=== PATIENT | female | born 1945 | race Caucasian/White ===

== ENCOUNTER 2021-03-12 14:55 | Inpatient (IN) | payer MEDICARE, OTHER ==
[~2021-03-12] VITALS: Ht 157.5 cm; Wt 58.5 kg
[2021-03-12 15:13] LABS: BASOPHILS # (AUTO) 0.1 /CMM (0.0-0.2); BASOPHILS % (AUTO) 1.7 % (0.0-2.0); EOSINOPHILS % (AUTO) 3.1 % (0.0-6.0); HEMATOCRIT 39 % (33-45); HEMOGLOBIN 13.1 g/dL (11.5-14.8); LYMPHOCYTES # (AUTO) 1.5 /CMM (0.8-4.8); LYMPHOCYTES % (AUTO) 34.5 % (20.0-44.0); MEAN CORPUSCULAR HGB CONC 33 g/dl (31.0-36.0); MEAN CORPUSCULAR VOLUME 96 fL (82-100); MONOCYTES # (AUTO) 0.5 /CMM (0.1-1.30); MONOCYTES % (AUTO) 10.9 % (2.0-12.0); NEUTROPHILS # (AUTO) 2.2 /CMM (1.8-8.9); NEUTROPHILS % (AUTO) 49.8 % (43.0-81.0); PLATELET COUNT (AUTO) 182 /CMM (150-450); RED BLOOD CELL COUNT(AUTO) 4.08 MIL/uL (4.0-5.2); WHITE BLOOD COUNT (AUTO) 4.5 K/uL (4.3-11.0)
--- NOTE | 2021-03-12 15:19 | NUR ---
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 BS 158. On room air, breathing evenly and unlabored. Connected to the monitor and pulse ox. kept comfortable, will continue to monitor accordingly.
--- NOTE | 2021-03-12 15:21 | NUR ---
ANA [phone].
[2021-03-12 15:25] LABS: BILIRUBIN,URINE Negative (NEGATIVE); COLOR,URINE YELLOW (YELLOW); LEUKOCYTE ESTERASE ,URINE Negative (NEGATIVE); NITRITE, URINE Negative (NEGATIVE); PH,URINE 6.5 (5.0-8.0); PROTEIN,URINE Negative (NEGATIVE); UGLUCOSE Negative (NEGATIVE); UROBILINOGEN,URINE 0.2 EU/dL (0.2)
[2021-03-12 15:27] LABS: CARBON DIOXIDE 27 mmol/L (21-32); CHLORIDE 105 mmol/L (98-107); CREATININE 0.7 mg/dL (0.6-1.3); GLUCOSE 115 mg/dL (74-106); POTASSIUM 4.1 mmol/L (3.5-5.1); SODIUM SERUM 138 mmol/L (136-145); UREA NITROGEN, BLOOD 11 mg/dL (7-18)
[2021-03-12] MEDS ORDERED: IV NS 0.9% 1,000 ML BAG IV ONE (15:30)
[2021-03-12 15:32] LABS: ALANINE AMINOTRANSFERASE 26 U/L (12-78); ALBUMIN 3.4 g/dL (3.4-5.0); ALCOHOL, BLOOD < 3 mg/dL (0-0); ALKALINE PHOSPHATASE 71 U/L (46-116); ASPARTATE AMINOTRANSFERASE 20 U/L (15-37); BILIRUBIN,DIRECT 0.1 mg/dL (0.0-0.2); BILIRUBIN,TOTAL 0.4 mg/dL (0.2-1.0); TOTAL PROTEIN, SERUM 6.4 g/dL (6.4-8.2)
[2021-03-12 15:34] LABS: SERUM AMMONIA 17 umol/L (11-32)
[2021-03-12] MEDS ORDERED: ATOR20TA PO (16:24)
--- NOTE | 2021-03-12 16:33 | NUR ---
CODE STROKE INITIATED
--- NOTE | 2021-03-12 16:37 | NUR ---
COVID SWAB DONE AND SENT TO LAB
[2021-03-12] MEDS ORDERED: CT SWABBABLE VALVE TRANS SET 1 EA INFUS.SET MC ONE (16:38)
[2021-03-12] MEDS ORDERED: IOHEXOL-350 100 ML VIAL IV ONE (16:38)
[2021-03-12] MEDS ORDERED: IV NS 0.9% 250 ML IV ONE (16:38)
--- NOTE | 2021-03-12 17:10 | NUR ---
covid negative per lab
[2021-03-12] MEDS ORDERED: ENALAPRILAT INJ (1.25 MG/ML) 1.25 MG/ML VIAL IV PRN (17:30)
[2021-03-12] MEDS ORDERED: ASPIRIN 325 MG TABLET PO ONE ×2 (17:30→22:30)
[2021-03-12] MEDS ORDERED: ACETAMINOPHEN 325 MG TABLET PO PRN (17:30)
--- NOTE | 2021-03-12 17:30 | NUR ---
NURSING SUP GAVE 322-1.
[2021-03-12] MEDS ORDERED: PARO10TA86 PO (17:31)
[2021-03-12] MEDS ORDERED: ESCI10TA PO (17:31)
--- NOTE | 2021-03-12 18:30 | NUR ---
CAR SUPPLIER ADMITTING NOTES PT TRANSPORTED BY BED TO UNIT FROM ED AT THIS TIME. RECEIVED REPORT FROM ARACELI RN @ ED , PT AOX4. PT ABLE TO MAKE NEEDS KNOWN. NO SOB NOTED, NO C//O OF PAIN AT THIS TIME, NO S/O ANY ACUTE DISTRESS NOTED.RESPIRATIONS EVEN AND UNLABORED. PT IS STABLE ON RA. PT ON EXTERNAL TELE TIN FLIPPER READING SB 58. ACTIVE BOWEL SOUNDS AUSCULTATED THROUGHOUT, SKIN WARM TO TOUCH. CAPILLARY REFILL< 3SECONDS, PULSES PRESENT BILATERALLY, GOOD CIRCULATION NOTED. BUE AND BLE STRENGTH. IV ACCESS NOTED IN RAC G#18, INTACT, PATENT AND FLUSHING WELL. PT'S BELONGINGS ACCOUNTED FOR, AND KEPT AT PT'S BEDSIDE PER PT REQUEST. FAMILY AT BEDSIDE. NIHSS ASSESSMENT PERFORMED AT BEDSIDE WITH SCORE OF 0. ASPIRATION AND SAFETY PRECAUTIONS IN PLACE AND MAINTAINED AT ALL TIMES. BED IN LOWEST LOCKED POSITION, SIDE RAILS UPX2, TABLE AND CALL LIGHT WITHIN REACH. WILL CONTINUE WITH PLAN OF CARE
--- NOTE | 2021-03-12 18:30 | NUR ---
report given to Sheri BLANCO for juan pablo
--- NOTE | 2021-03-12 18:38 | NUR ---
wheeled patient via gurney accompanied by RN and emt in no distress. RN assigned at bedside to assume care.
--- NOTE | 2021-03-12 18:46 | NUR ---
TEXTED DR. HOUSE FOR MRI APPROVAL.
[2021-03-12 19:04] LABS: THYROID STIMULATING HORMONE 1.161 uIU/mL (0.358-3.74)
[2021-03-12 19:13] LABS: MAGNESIUM 2.3 mg/dL (1.8-2.4)
--- NOTE | 2021-03-12 19:30 | NUR ---
TELE/RN OPENING NOTES RECEIVED PATIENT IN BED RESTING. PATIENT IS A/OX 4, NO SIGNS OF SOB OR RESPIRATORY DISTRESS NOTED. PATIENT BREATHING IS EVEN AND UNLABORED. PATIENT IN NO ACUTE DISTRESS NOTED. FAMILY AT BESIDE. PATIENT PASSED NURSING SWALLOW EVALUATION. PATIENT STATES NO PAIN AT THE MOMENT. PATIENT CONNECTED TO TELE MONITOR. SAFETY MEASURES ARE IN PLACE, WILL CONTINUE WITH PATIENT PLAN OF CARE.
[2021-03-12 20:00] VITALS: BP 128/75
[2021-03-12] MEDS ORDERED: SIMVASTATIN 20 MG TABLET PO SCH (22:00)
[2021-03-12] MEDS ORDERED: IV D5/0.45 NACL 1,000 ML IV PRN (22:00)
[2021-03-13] VITALS: BP 108/89
[2021-03-13 04:00] VITALS: BP 109/57
[2021-03-13 06:31] LABS: BASOPHILS # (AUTO) 0.1 /CMM (0.0-0.2); BASOPHILS % (AUTO) 1.1 % (0.0-2.0); EOSINOPHILS % (AUTO) 2.6 % (0.0-6.0); HEMATOCRIT 38 % (33-45); HEMOGLOBIN 12.5 g/dL (11.5-14.8); LYMPHOCYTES # (AUTO) 1.8 /CMM (0.8-4.8); LYMPHOCYTES % (AUTO) 38.6 % (20.0-44.0); MEAN CORPUSCULAR HGB CONC 33 g/dl (31.0-36.0); MEAN CORPUSCULAR VOLUME 96 fL (82-100); MONOCYTES # (AUTO) 0.4 /CMM (0.1-1.30); MONOCYTES % (AUTO) 9.4 % (2.0-12.0); NEUTROPHILS # (AUTO) 2.2 /CMM (1.8-8.9); NEUTROPHILS % (AUTO) 48.3 % (43.0-81.0); PLATELET COUNT (AUTO) 173 /CMM (150-450); WHITE BLOOD COUNT (AUTO) 4.6 K/uL (4.3-11.0)
--- NOTE | 2021-03-13 06:38 | NUR ---
TELE/RN CLOSING NOTES PATIENT IN BED RESTING. PATIENT IS A/OX 3, NO SIGNS OF SOB OR RESPIRATORY DISTRESS NOTED. PATIENT BREATHING IS EVEN AND UNLABORED. PATIENT IN NO ACUTE DISTRESS NOTED. PATIENT STATES NO PAIN AT THE MOMENT. PATIENT CONNECTED TO TELE MONITOR. IV ACCESS INTACT FLUSHING WELL. PATIENT ABLE TO AMBULATE WITH ASSIST TO RESTROOM. SAFETY MEASURES ARE IN PLACE, WILL ENDORSE CARE TO DAY SHIFT.
[2021-03-13 06:56] LABS: CALCIUM, SERUM 8.4 mg/dL (8.5-10.1); CREATININE 0.7 mg/dL (0.6-1.3); POTASSIUM 3.8 mmol/L (3.5-5.1)
--- NOTE | 2021-03-13 07:30 | NUR ---
RN MS NOTES PT IN BED, AWAKE, ALERT AND ORIENTED, DENIES PAIN, NOT IN DISTRESS, CALL LIGHT WITHIN REACH, KEPT WARM AND COMFORTABLE IN BED.
[2021-03-13 08:00] VITALS: BP 122/60
[2021-03-13] MEDS ORDERED: ASPIRIN 81 MG TAB.CHEW PO SCH (09:00)
[2021-03-13] MEDS ORDERED: ASPI-1169 PO (14:27)
[2021-03-13] MEDS ORDERED: SIMV-46 PO (14:27)
[2021-03-13 16:00] VITALS: BP 117/63
--- NOTE | 2021-03-13 17:25 | NUR ---
RN MS NOTES PT AWAKE, ALERT AND ORIENTED, NO COMPLAINT AT THIS TIME, RESPIRATIONS NORMAL, VITALS STABLE, SEEN BY DR. GAYLE, DISCHARGE ORDER GIVEN, PT CLEARED FOR DISCHARGE BY DR. WAGNER, PT WILL FOLLOW UP WITH HIM ON DISCHARGE, VERBALIZED UNDERSTANDING, DISCHARGE AND MEDICATION INSTRUCTIONS WELL STROKE EDUCATION PACKET GIVEN TO PT, PRESCRIPTION GIVEN TO PT, VERBALIZED UNDERSTANDING, BELONGINGS ACCOUNTED FOR, ASSISTED TO HOSPITAL LOBBY VIA WHEELCHAIR, PICKED UP BY DAUGHTER ANA AND , LEFT VIA PRIVATE CAR IN STABLE CONDITION.
== END 2021-03-13 17:20 | disposition home or self-care (01) | DRG 69 ==
LOC: ER 14:58 → TELE 17:34 → MED 03-13 10:51
PROVIDERS: ADMIT Nurse Practitioner Acute Care; ATTEND Nurse Practitioner Acute Care
DX: G45.9 Transient cerebral ischemic attack, unspecified (principal); G93.41 Metabolic encephalopathy; D68.59 Other primary thrombophilia; Z20.822 Contact with and (suspected) exposure to COVID-19; E78.5 Hyperlipidemia, unspecified; Z88.5 Allergy status to narcotic agent; Z88.8 Allergy status to other drugs, medicaments and biological substances; Z79.899 Other long term (current) drug therapy; Z74.09 Other reduced mobility; E78.00 Pure hypercholesterolemia, unspecified; I67.2 Cerebral atherosclerosis; M48.02 Spinal stenosis, cervical region; Z90.10 Acquired absence of unspecified breast and nipple; Z85.3 Personal history of malignant neoplasm of breast; R73.9 Hyperglycemia, unspecified; R29.700 NIHSS score 0
CPT/HCPCS: 36415; 70450-TC; 70496-TC; 70498-TC; 70551-TC; 71045-TC; 72100-TC; 80048-TC; 80061-TC; 80076-TC; 82140-TC; 83605-TC; 83735-TC; 84443-TC; 84484-TC; 85025-TC; 85730-TC; 87081-TC; 92526; 92611-TC; 93307-TC; 93880-TC; 97116-TC; 97530-TC; C9803; G0378; G0480; J7030; J7050; Q9967

== ENCOUNTER 2025-03-22 13:05 | Emergency (ER) | payer MEDICARE, OTHER ==
[~2025-03-22] VITALS: Ht 157.5 cm; Wt 59.9 kg
[~2025-03-22 13:05] MED LIST: ASPI-1169 PO; ESCI10TA PO; PARO10TA86 PO; SIMV-46 PO
[2025-03-22 13:42] LABS: BASOPHILS % (AUTO) 1.1 % (0.0-2.0); EOSINOPHILS # (AUTO) 0.1 K/uL (0.0-0.7); EOSINOPHILS % (AUTO) 3.2 % (0.0-6.0); HEMATOCRIT 40 % (33-45); HEMOGLOBIN 13.4 g/dL (11.5-14.8); LYMPHOCYTES # (AUTO) 1.4 K/uL (0.8-4.8); LYMPHOCYTES % (AUTO) 33.7 % (20.0-44.0); MEAN CORPUSCULAR HEMOGLOBIN 32 PG (26.0-33.0); MEAN CORPUSCULAR HGB CONC 34 g/dl (31.0-36.0); MEAN CORPUSCULAR VOLUME 96 fL (82-100); MONOCYTES # (AUTO) 0.5 K/uL (0.1-1.30); MONOCYTES % (AUTO) 11.6 % (2.0-12.0); NEUTROPHILS # (AUTO) 2.1 K/uL (1.8-8.9); NEUTROPHILS % (AUTO) 50.4 % (43.0-81.0); PLATELET COUNT (AUTO) 163 K/uL (150-450); RED BLOOD CELL COUNT(AUTO) 4.15 MIL/uL (4.0-5.2); RED CELL DISTRIBUTION WIDTH 13.9 % (11.5-15.0); WHITE BLOOD COUNT (AUTO) 4.1 K/uL (4.3-11.0)
[2025-03-22 13:49] LABS: CARBON DIOXIDE 30 mmol/L (21-32); CHLORIDE 106 mmol/L (98-107); CREATININE 0.8 mg/dL (0.6-1.3); GLUCOSE 96 mg/dL (74-106); POTASSIUM 3.7 mmol/L (3.5-5.1); SODIUM SERUM 140 mmol/L (136-145); UREA NITROGEN, BLOOD 12 mg/dL (7-18)
[2025-03-22 13:55] LABS: INR 0.93 (0.91-1.10); PARTIAL THROMBOPLASTIN TIME 22.1 SEC (24.3-34.3); PROTHROMBIN TIME 9.6 SECS (9.2-11.1)
[2025-03-22 17:18] VITALS: BP 118/72; TEMP 98.4; O2SAT 95
== END 2025-03-22 17:18 | disposition home or self-care (01) ==
LOC: ER 13:11
DX: M79.661 Pain in right lower leg (principal); Z79.82 Long term (current) use of aspirin; Z79.899 Other long term (current) drug therapy; Z88.5 Allergy status to narcotic agent
CPT/HCPCS: 36415; 80048-TC; 85025-TC; 85730-TC; 93971-TC